=== PATIENT | female | born 1985 | race Caucasian/White ===

== ENCOUNTER → 2020-04-09 | Outpatient (CLI) | payer OTHER ==
--- NOTE | 2020-04-09 12:00 | MR ---
EXAMINATION TYPE: MR shoulder LT wo con DATE OF EXAM: 04/09/2020 COMPARISON: None HISTORY: Lump at base of neck toward left shoulder, Area of interest marked TECHNIQUE: Multiplanar, multisequence imaging of the left shoulder is performed without contrast. FINDINGS: The area of patient's palpable abnormality is marked, only partially evaluated on the curre nt exam. 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 There is motion on the exam. Rotator Cuff: Czyvsj-ek-jcunt ratio is not optimal. There is abnormal increased signal associated wit h the rotator cuff without evident tear. Acromioclavicular Joint: Distal acromion shows minimal spur, acromioclavicular joint arthropathy is p resent causing some mass effect on the musculotendinous junction of supraspinatus Glenohumeral Joint: Maintained Labrum: The labrum appears grossly intact given limitation of non-arthrogram study. Biceps Tendon: The long head of biceps is in normal location within bicipital groove. Bone marrow signal: Pseudocysts are present in the humeral head. Other: Some fluid signal present in the subacromial subdeltoid bursa. IMPRESSION: Tear of the patient's clinical abnormality is not well evaluated as described. Correlate for tendinos is, impingement of the rotator cuff, no tripp tear. 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
== END | disposition home or self-care (01) ==
LOC: RADMRIMAIN 07:48
PROVIDERS: ATTEND Nurse Practitioner Women's Health
DX: M24.212 Disorder of ligament, left shoulder (principal)

== ENCOUNTER → 2021-06-22 | Outpatient (CLI) | payer OTHER ==
--- NOTE | 2021-06-22 12:42 | CT ---
EXAMINATION TYPE: CT sinus wo con DATE OF EXAM: 06/22/2021 COMPARISON: None available HISTORY: chronic sinusitis CT DLP: 615.90 mGycm. Automated Exposure Control for Dose Reduction was Utilized. TECHNIQUE: CT scan of the sinuses is performed without contrast, axial images are obtained, coronal r eformatted images are also reviewed. FINDINGS: No significant bony nasal septal deviation. Unremarkable middle and inferior turbinates. Minimal muco manju thickening of the inferior aspect of the right nasal fossa. Patent infundibulum and middle meatus bilaterally. Unremarkable maxillary sinuses, sphenoid sinus, frontal sinus and ethmoid air cells. Clear sphenoethm oidal recesses. Clear visualized portion of the mastoid air cells. Unremarkable visualized portion of the brain and orbits. IMPRESSION: No evidence of acute or chronic sinusitis. Incidental findings as described above.
== END | disposition home or self-care (01) ==
LOC: RADCTMAIN 09:12
PROVIDERS: ATTEND Otolaryngology
DX: J32.9 Chronic sinusitis, unspecified (principal)
CPT/HCPCS: 70486

== ENCOUNTER → 2023-08-02 | Outpatient (CLI) | payer OTHER ==
[2023-08-02 14:41] LABS: Basophils % (A) 1.5 %; Eosinophils # (A) 0.21 X 10*3/uL (0.04-0.35); Eosinophils % (A) 3.1 %; HCT 40.4 % (37.2-46.3); HGB 12.8 g/dL (12.0-15.0); Lymphocytes # (A) 1.92 X 10*3/uL (0.90-5.00); Lymphocytes % (A) 28.5 %; MCHC 31.7 g/dL (32.0-37.0); MCV 91.4 FL (80.0-97.0); Mean Platelet Volume 11.5 FL (9.5-12.2); Monocytes # (A) 0.53 X 10*3/uL (0.20-1.00); Monocytes % (A) 7.9 %; NRBC Per 100 WBC 0 X 10*3/uL (0.00-0.01); Neutrophils # (A) 3.96 X 10*3/uL (1.80-7.70); Neutrophils % (A) 58.7 %; Platelet Count 219 X 10*3/uL (140-440); RBC 4.42 X 10*6/uL (4.10-5.20); RDW 13.2 % (11.5-14.5); WBC 6.74 X 10*3/uL (4.50-10.00)
[2023-08-02 15:20] LABS: ALT 13 U/L (8-44); AST 19 U/L (13-35); Albumin 4.6 g/dL (3.8-4.9); Alkaline Phosphatase 53 U/L (41-126); BUN/Creat Ratio 15.25 Ratio (12.00-20.00); Blood Urea Nitrogen 12.2 mg/dL (9.0-27.0); Calcium 9.5 mg/dL (8.7-10.3); Carbon Dioxide 22.5 mmol/L (21.6-31.8); Chloride 103 mmol/L (96-109); Chol/HDL Ratio 3.73 Ratio; Globulin 2.3 g/dL (1.6-3.3); Glucose 89 mg/dL (70-110); LDL Cholesterol,Calculated 126.5 mg/dL (0.0-131.0); Potassium 4.3 mmol/L (3.5-5.5); Sodium 135 mmol/L (135-145); Total Bilirubin 0.7 mg/dL (0.3-1.2); Total Protein 6.9 g/dL (6.2-8.2); VLDL Calculation 10.36 mg/dL (5.00-40.00)
== END | disposition home or self-care (01) ==
LOC: LABWHC1 10:19
PROVIDERS: ATTEND Internal Medicine
DX: Z00.00 Encounter for general adult medical examination without abnormal findings (principal)
CPT/HCPCS: 36415; 80053; 80061; 84443; 85025

== ENCOUNTER → 2024-06-10 | Outpatient (CLI) | payer OTHER ==
[2024-06-10 15:18] LABS: BUN/Creat Ratio 15.12 Ratio (12.00-20.00); Blood Urea Nitrogen 12.1 mg/dL (9.0-27.0); Carbon Dioxide 25.5 mmol/L (21.6-31.8); Chloride 103 mmol/L (96-109); Chol/HDL Ratio 3.41 Ratio; Glucose 88 mg/dL (70-110); Iron 124 UG/DL (50-170); LDL Cholesterol,Calculated 114.8 mg/dL (0.0-131.0); Potassium 4.4 mmol/L (3.5-5.5); Sodium 137 mmol/L (135-145); Total Iron Binding Capacity 336 UG/DL (228-460); VLDL Calculation 13.06 mg/dL (5.00-40.00)
[2024-06-10 15:19] LABS: ALT 13 U/L (8-44); AST 16 U/L (13-35); Albumin 4.2 g/dL (3.8-4.9); Albumin/Globulin Ratio 1.62 Ratio (1.60-3.17); Alkaline Phosphatase 54 U/L (41-126); Calcium 9.4 mg/dL (8.7-10.3); Ferritin 65.1 ng/mL (10.0-291.0); Globulin 2.6 g/dL (1.6-3.3); Total Bilirubin 0.5 mg/dL (0.3-1.2); Total Protein 6.8 g/dL (6.2-8.2)
[2024-06-10 15:52] LABS: Basophils % (A) 1.3 %; Eosinophils # (A) 0.21 X 10*3/uL (0.04-0.35); Eosinophils % (A) 2.8 %; HCT 39.7 % (37.2-46.3); HGB 12.7 g/dL (12.0-15.0); Lymphocytes # (A) 1.87 X 10*3/uL (0.90-5.00); Lymphocytes % (A) 24.7 %; MCH 28.8 pg (27.0-32.0); Mean Platelet Volume 12.2 FL (9.5-12.2); Monocytes # (A) 0.44 X 10*3/uL (0.20-1.00); Monocytes % (A) 5.8 %; NRBC Per 100 WBC 0 X 10*3/uL (0.00-0.01); Neutrophils # (A) 4.91 X 10*3/uL (1.80-7.70); Neutrophils % (A) 64.9 %; Platelet Count 270 X 10*3/uL (140-440); RBC 4.41 X 10*6/uL (4.10-5.20); RDW 13.3 % (11.5-14.5); WBC 7.57 X 10*3/uL (4.50-10.00)
== END | disposition home or self-care (01) ==
LOC: LABWHC1 10:12
PROVIDERS: ATTEND Internal Medicine
DX: Z00.00 Encounter for general adult medical examination without abnormal findings (principal); Z11.59 Encounter for screening for other viral diseases; L65.9 Nonscarring hair loss, unspecified
CPT/HCPCS: 36415; 80053; 80061; 82607; 82728; 82746; 83540; 83550; 84443; 85025; 86803